=== PATIENT | male | born 1970 | race Caucasian/White ===

== ENCOUNTER 2019-04-01 14:12 | Emergency (ER) | payer OTHER ==
[~2019-04-01] VITALS: Ht 188 cm; Wt 88.5 kg
[2019-04-01 14:23] VITALS: BP 129/81; Ht 188 cm; Wt 88.5 kg
== END 2019-04-01 15:08 | disposition other institution (70) ==
LOC: ED 14:12
DX: Z02.89 Encounter for other administrative examinations (principal)